=== PATIENT | female | born 2005 | race American Indian/Alaskan Native ===

== ENCOUNTER 2024-12-31 10:47 | Emergency (ER) | payer BC ==
[~2024-12-31] VITALS: Ht 165.1 cm; Wt 66.2 kg
[~2024-12-31 10:47] MED LIST: ONDA-282 PO
[2024-12-31] MEDS: NS (Normal Saline) 0.9% 1,000 ML IV ONE (12:02)
[2024-12-31] MEDS: ACETAMINOPHEN 500 MG TAB PO ONE (12:03)
[2024-12-31] MEDS: ONDANSETRON 4MG 2ML VIAL IV ONE (12:03)
[2024-12-31 12:08] LABS: BASO # 0.0 10^3/uL (0.0-0.2); BASO % 0.2 % (0.0-1.0); EOS # 0.1 10^3/uL (0.0-0.5); EOS % 0.9 % (0.0-3.0); LYMPH # 1.5 10^3/uL (1.5-5.0); LYMPH % 17.7 % (24.0-44.0); MONO # 0.5 10^3/uL (0.0-0.8); MONO % 6.1 % (2.0-8.0); NEUTROPHILS # 6.2 10^3/uL (1.5-8.5); NEUTROPHILS % 74.9 % (36.0-66.0); PLATELET COUNT, AUTOMATED 207 10^3/uL (150-450)
[2024-12-31 12:13] LABS: KETONE, URINE AUTO RFX TRACE mg/dL (NEGATIVE); MUCUS, URINE RFX SMALL (NEGATIVE); NITRITE, URINE AUTO RFX NEGATIVE (NEGATIVE); RBC, URINE AUTO RFX 2 /HPF (0-3); SQUAM EPITHELIAL CELL UR AURFX 16 /HPF (0-6); WBC, URINE AUTO RFX 0 /HPF (0-3)
[2024-12-31 12:19] LABS: LEUKOCYTE ESTERASE UR AUTO RFX TRACE (NEGATIVE)
[2024-12-31 12:32] LABS: CALCIUM LEVEL 9.2 MG/DL (8.5-10.1); CARBON DIOXIDE LEVEL 25 MMOL/L (20-31); CHLORIDE LEVEL 103 MMOL/L (98-107); CREATININE FOR GFR 0.64 MG/DL (0.55-1.30); GLOMERULAR FILTRATION RATE > 90.0 (>60); POTASSIUM SERUM 4.4 MMOL/L (3.5-5.1); SODIUM LEVEL 139 MMOL/L (136-145)
[2024-12-31 13:00] VITALS: BP 105/56; TEMP 97.2; O2SAT 100
== END 2024-12-31 13:03 | disposition home or self-care (01) ==
LOC: M ED 10:47
DX: O21.9 Vomiting of pregnancy, unspecified (principal); F17.200 Nicotine dependence, unspecified, uncomplicated; Z3A.08 8 weeks gestation of pregnancy; Z79.83 Long term (current) use of bisphosphonates
CPT/HCPCS: 80048; 81001; 85025; 87086; 96374; 99284; J2405

== ENCOUNTER → 2025-02-11 | Outpatient (CLI) | payer BC ==
[2025-02-11 15:40] LABS: PLATELET COUNT, AUTOMATED 215 10^3/uL (150-450)
[2025-02-11 16:05] LABS: Trichomonas vaginalis (AMP) NOT DETECTED (NEGATIVE)
[2025-02-11 16:08] LABS: HIV 1&2 SCREEN NEGATIVE (NEGATIVE)
[2025-02-11 16:16] LABS: HEPATITIS C VIRUS ABY INDEX < 0.02 INDEX (<0.8)
[2025-02-11 16:29] LABS: GC DNA AMPLIFICATION NEGATIVE (NEGATIVE)
== END ==
LOC: M PLALAB 13:14
PROVIDERS: ATTEND Advanced Practice Midwife
DX: Z34.01 Encounter for supervision of normal first pregnancy, first trimester (principal)

== ENCOUNTER → 2025-03-18 | Outpatient (CLI) | payer BC | LOC: M WHC 10:16 | PROVIDERS: ATTEND Advanced Practice Midwife | DX: Z34.02 Encounter for supervision of normal first pregnancy, second trimester (principal); Z3A.19 19 weeks gestation of pregnancy ==

== ENCOUNTER → 2025-05-06 | Outpatient (CLI) | payer BC ==
[2025-05-06 15:38] LABS: PLATELET COUNT, AUTOMATED 188 10^3/uL (150-450)
[2025-05-06 15:44] LABS: GLUCOSE CHALLENGE TEST 1 HOUR 94 MG/DL (LESS THAN 140)
[2025-05-06 16:19] LABS: HIV 1&2 SCREEN NEGATIVE (NEGATIVE)
[2025-05-06 16:27] LABS: HEPATITIS C VIRUS ABY INDEX < 0.02 INDEX (<0.8)
[2025-05-06 16:52] LABS: Trichomonas vaginalis (AMP) NOT DETECTED (NEGATIVE)
[2025-05-06 17:16] LABS: GC DNA AMPLIFICATION NEGATIVE (NEGATIVE)
== END ==
LOC: M PLALAB 10:39
PROVIDERS: ATTEND Student in an Organized Health Care Education/Training Program
DX: Z34.80 Encounter for supervision of other normal pregnancy, unspecified trimester (principal)